=== PATIENT | female | born 1990 | race Caucasian/White ===

== ENCOUNTER 2024-05-20 13:25 | Outpatient (CLI) | payer OTHER | END 2024-05-20 13:26 | disposition home or self-care (01) | LOC: PRENATAL 13:25 | PROVIDERS: ATTEND Obstetrics & Gynecology Maternal & Fetal Medicine | DX: O26.849 Uterine size-date discrepancy, unspecified trimester (principal); O24.419 Gestational diabetes mellitus in pregnancy, unspecified control; O99.210 Obesity complicating pregnancy, unspecified trimester; Z3A.23 23 weeks gestation of pregnancy ==

== ENCOUNTER → 2024-06-21 08:37 | Outpatient (CLI) | payer OTHER | END | disposition home or self-care (01) | LOC: PRENATAL 08:37 | PROVIDERS: ATTEND Obstetrics & Gynecology Maternal & Fetal Medicine | DX: O26.849 Uterine size-date discrepancy, unspecified trimester (principal); O36.8199 Decreased fetal movements, unspecified trimester, other fetus; O24.419 Gestational diabetes mellitus in pregnancy, unspecified control; O99.210 Obesity complicating pregnancy, unspecified trimester; O32.9XX0 Maternal care for malpresentation of fetus, unspecified, not applicable or unspecified; Z3A.28 28 weeks gestation of pregnancy ==

== ENCOUNTER → 2024-08-02 07:23 | Outpatient (CLI) | payer OTHER | END | disposition home or self-care (01) | LOC: PRENATAL 07:23 | PROVIDERS: ATTEND Obstetrics & Gynecology Maternal & Fetal Medicine | DX: O26.849 Uterine size-date discrepancy, unspecified trimester (principal); O36.8199 Decreased fetal movements, unspecified trimester, other fetus; O24.419 Gestational diabetes mellitus in pregnancy, unspecified control; O99.210 Obesity complicating pregnancy, unspecified trimester; O32.9XX0 Maternal care for malpresentation of fetus, unspecified, not applicable or unspecified; Z3A.34 34 weeks gestation of pregnancy ==

== ENCOUNTER 2024-08-16 21:13 | Outpatient (CLI) | payer OTHER ==
[~2024-08-16] VITALS: Ht 167.6 cm; Wt 113.4 kg
[2024-08-16 21:38] VITALS: BP 106/66
[2024-08-16] MEDS ORDERED: BETAMETHASONE ACETATE,SOD PHOS 30 MG/5 ML ML IM STA (21:43)
[2024-08-16] MEDS ORDERED: SODIUM CHLORIDE 0.45 % 1,000 ML IV SCH (21:45)
[2024-08-16] MEDS ORDERED: PRENATAL TABLE1 EAC1 PO (22:09)
[2024-08-16] MEDS ORDERED: ASPIRIN81 MG PO (22:10)
[2024-08-16] MEDS ORDERED: HUMULIN N100 UNIT/2 SUBCUTANEO (22:12)
[2024-08-16 22:19] LABS: BASO % 0.2 % (0.1-1.2); EOS # 0.15 (0.04-0.54); EOS % 1.5 % (0.7-7.0); HEMATOCRIT 38.2 % (34.1-44.9); HEMOGLOBIN 13.3 g/dL (11.2-15.7); LYMPH # 2.12 (1.18-3.74); LYMPH % 20.9 % (19.3-53.1); MEAN CORPUSCULAR HEMOGLOBIN 29.1 pg (25.6-32.2); MONO # 0.55 (0.24-0.82); MONO % 5.4 % (4.7-12.5); NEUT # 7.25 (1.56-6.13); NEUT % 71.6 % (34.0-71.1); PLATELET COUNT 157 K/uL (163-369); RED BLOOD COUNT 4.57 M/uL (3.93-5.22); RED CELL DISTRIBUTION WIDTH 13.2 % (11.6-14.4)
[2024-08-16 22:20] LABS: PH,URINE 7.5 (5.0-8.0); URINE APPEARANCE Cloudy; URINE BILIRRUBIN Negative (NEGATIVE); URINE BLOOD Negative; URINE COLOR Yellow; URINE GLUCOSE Negative (NEGATIVE); URINE KETONE Trace (NEGATIVE); URINE LEUKOCYTE Large; URINE NITRATE Negative; URINE PROTEIN 30 (NEGATIVE)
[2024-08-16 22:24] LABS: URINE EPITHELIAL CELLS 173.5 uL (0.0-38.8); URINE RBC 11.7 uL (0.0-20.8); URINE WBC 615.2 uL (0.0-23.2)
[2024-08-16 22:39] LABS: INR 0.94; PARTIAL THROMBOPLASTIN TIME 23.7 SECONDS (22.0-34.0); PROTHROMBIN TIME 10.3 SECONDS (9.0-11.5)
[2024-08-16 22:42] LABS: ALBUMIN 2.9 gm/dL (3.4-5.0); BILIRUBIN TOTAL 0.24 mg/dL (0.3-1.2); CALCIUM 9.3 mg/dL (8.5-10.1); CREATININE SERUM 0.5 mg/dL (0.55-1.02); GFR 142.09; GLOBULINA 3.3 G/DL (2.4-3.5); POTASSIUM 3.67 mEq/L (3.5-5.1); TOTAL PROTEIN 6.2 gm/dL (6.4-8.2)
[2024-08-16 22:50] LABS: URINE CAST 0.88 uL (0.0-1.40)
[2024-08-16 22:51] LABS: URINE YEAST MODERATE /hpf
[2024-08-16 23:51] VITALS: BP 111/67
[2024-08-17] VITALS (7 sets, daily range): BP systolic 93–113; BP diastolic 60–72; O2SAT 98
[2024-08-17] MEDS ORDERED: CEFAZOLIN SODIUM 1,000 MG VIAL IV SCH ×2 (00:45→02:00)
[2024-08-17] MEDS ORDERED: INSULIN NPH HUM/REG INSULIN HM 1,000 UNIT/10 ML UNITS SUBCUTANEO SCH (21:00)
[2024-08-17] MEDS ORDERED: BETAMETHASONE ACETATE,SOD PHOS 30 MG/5 ML ML IM ONE (21:45)
== END 2024-08-17 23:28 | disposition home or self-care (01) ==
LOC: OBS/DEL 21:13
PROVIDERS: ATTEND Obstetrics & Gynecology
DX: O26.893 Other specified pregnancy related conditions, third trimester (principal); O26.849 Uterine size-date discrepancy, unspecified trimester; O36.8199 Decreased fetal movements, unspecified trimester, other fetus; O24.419 Gestational diabetes mellitus in pregnancy, unspecified control; Z3A.36 36 weeks gestation of pregnancy

== ENCOUNTER 2024-08-19 17:11 | Inpatient (IN) | payer OTHER ==
[~2024-08-19] VITALS: Ht 167.6 cm; Wt 113.4 kg
[~2024-08-19 17:11] MED LIST: ASPIRIN81 MG PO; HUMULIN N100 UNIT/2 SUBCUTANEO; PRENATAL TABLE1 EAC1 PO
[2024-08-19 17:32] VITALS: BP 96/63
[2024-08-19] MEDS ORDERED: CEPHALEXIN750 MG (18:14)
[2024-08-19] MEDS ORDERED: RINGERS SOLUTION,LACTATED 1,000 ML IV SCH (18:30)
[2024-08-19 18:40] LABS: BASO % 0.2 % (0.1-1.2); EOS # 0.06 (0.04-0.54); EOS % 0.5 % (0.7-7.0); HEMATOCRIT 35.8 % (34.1-44.9); HEMOGLOBIN 12.5 g/dL (11.2-15.7); LYMPH # 2.62 (1.18-3.74); LYMPH % 21.2 % (19.3-53.1); MEAN CORPUSCULAR HEMOGLOBIN 29.8 pg (25.6-32.2); MONO # 1.06 (0.24-0.82); MONO % 8.6 % (4.7-12.5); NEUT # 8.41 (1.56-6.13); NEUT % 68.3 % (34.0-71.1); PLATELET COUNT 152 K/uL (163-369); RED CELL DISTRIBUTION WIDTH 13.6 % (11.6-14.4); URINE APPEARANCE Cloudy; URINE BILIRRUBIN Negative (NEGATIVE); URINE BLOOD Negative; URINE COLOR Yellow; URINE GLUCOSE Negative (NEGATIVE); URINE KETONE Trace (NEGATIVE); URINE LEUKOCYTE Large; URINE NITRATE Negative; URINE PROTEIN Trace (NEGATIVE)
[2024-08-19 18:42] LABS: URINE BACTERIA 987.7 uL (0.0-1933); URINE RBC 4.7 uL (0.0-20.8); URINE WBC 635.6 uL (0.0-23.2)
[2024-08-19 19:01] LABS: BILIRUBIN TOTAL 0.26 mg/dL (0.3-1.2); CALCIUM 7.8 mg/dL (8.5-10.1); CREATININE SERUM 0.35 mg/dL (0.55-1.02); GFR 214.45; GLOBULINA 2.3 G/DL (2.4-3.5); INR 0.96; PARTIAL THROMBOPLASTIN TIME 22.2 SECONDS (22.0-34.0); POTASSIUM 3.71 mEq/L (3.5-5.1); PROTHROMBIN TIME 10.5 SECONDS (9.0-11.5); TOTAL PROTEIN 4.3 gm/dL (6.4-8.2)
[2024-08-19 19:34] VITALS: BP 112/69
[2024-08-19 19:38] LABS: URINE CAST 0.29 uL (0.0-1.40)
[2024-08-19 19:39] LABS: URINE YEAST MANY /hpf
[2024-08-19] MEDS ORDERED: INSULIN NPH HUMAN ISOPHANE 1,000 UNITS/10 ML UNITS SUBCUTANEO SCH (21:00)
[2024-08-19 23:29] VITALS: BP 104/64
[2024-08-20 04:00] VITALS: BP 104/62
[2024-08-20 07:37] VITALS: BP 103/67
[2024-08-20 11:22] VITALS: BP 106/66
[2024-08-20 15:18] VITALS: BP 124/77
[2024-08-20 18:23] VITALS: BP 110/70
[2024-08-20 23:36] VITALS: BP 103/65
[2024-08-21 04:00] VITALS: BP 107/67
[2024-08-21 07:39] VITALS: BP 105/69
[2024-08-21 11:08] VITALS: BP 115/75
== END 2024-08-21 14:38 | disposition home or self-care (01) | DRG 833 ==
LOC: LDR 17:11
PROVIDERS: ADMIT Obstetrics & Gynecology; ATTEND Obstetrics & Gynecology
PROC: 4A1HXCZ Monitoring of Products of Conception, Cardiac Rate, External Approach (ICD-10-PCS; principal; 2024-08-19)
PROC: BY4FZZZ Ultrasonography of Third Trimester, Single Fetus (ICD-10-PCS; 2024-08-20)
DX: O24.410 Gestational diabetes mellitus in pregnancy, diet controlled (principal); Z3A.36 36 weeks gestation of pregnancy

== ENCOUNTER 2024-08-31 01:19 | Inpatient (IN) | payer OTHER ==
[~2024-08-31] VITALS: Ht 167.6 cm; Wt 111.6 kg
[2024-08-31] VITALS (7 sets, daily range): BP systolic 107–155; BP diastolic 60–90
[~2024-08-31 01:19] MED LIST changes: +CEPHALEXIN750 MG
[2024-08-31] MEDS ORDERED: RINGERS SOLUTION,LACTATED 1,000 ML IV SCH (01:30)
[2024-08-31] MEDS ORDERED: PRENATA CHEWAB1 EACH PO (02:02)
[2024-08-31 02:53] LABS: BASO % 0.1 % (0.1-1.2); EOS # 0.07 (0.04-0.54); EOS % 0.7 % (0.7-7.0); HEMATOCRIT 37.3 % (34.1-44.9); LYMPH # 2.18 (1.18-3.74); LYMPH % 20.7 % (19.3-53.1); MEAN CORPUSCULAR HEMOGLOBIN 29.2 pg (25.6-32.2); MONO # 0.62 (0.24-0.82); MONO % 5.9 % (4.7-12.5); NEUT # 7.63 (1.56-6.13); NEUT % 72.2 % (34.0-71.1); PLATELET COUNT 158 K/uL (163-369); RED BLOOD COUNT 4.45 M/uL (3.93-5.22)
[2024-08-31 02:59] LABS: PH,URINE 6.5 (5.0-8.0); URINE APPEARANCE Clear; URINE BILIRRUBIN Negative (NEGATIVE); URINE BLOOD Negative; URINE COLOR Dark Yellow; URINE GLUCOSE Negative (NEGATIVE); URINE KETONE Trace (NEGATIVE); URINE LEUKOCYTE Moderate; URINE NITRATE Negative; URINE PROTEIN 30 (NEGATIVE)
[2024-08-31 03:05] LABS: URINE EPITHELIAL CELLS 51.2 uL (0.0-38.8); URINE RBC 15.7 uL (0.0-20.8); URINE WBC 366.8 uL (0.0-23.2)
[2024-08-31 03:12] LABS: INR 0.96; PARTIAL THROMBOPLASTIN TIME 22.4 SECONDS (22.0-34.0); PROTHROMBIN TIME 10.5 SECONDS (9.0-11.5)
[2024-08-31 03:24] LABS: URINE CAST 0.73 uL (0.0-1.40)
[2024-08-31] MEDS ORDERED: OXYTOCIN 20 UNITS/500ML RL PIGGYBAG IV SCH (12:45)
[2024-08-31] MEDS ORDERED: OXYTOCIN 20 UNITS/500ML RL PIGGYBAG IV ONE (13:38)
[2024-08-31] MEDS ORDERED: ERYTHROMYCIN BASE OPHT 1GM EACH TUBE OP ONE ×2 (19:30→23:14)
[2024-08-31] MEDS ORDERED: OXYTOCIN 20 UNITS/1000ML RL PIGGYBAG IV ONE (19:30)
[2024-08-31] MEDS ORDERED: CHLORHEXIDINE GLUCONATE 120 ML BOTTLE TOP ONE (19:31)
[2024-08-31] MEDS ORDERED: LIDOCAINE HCL 1% 10ML VIAL ONE (19:31)
[2024-08-31] MEDS ORDERED: CITRIC ACID/SODIUM CITRATE 30 ML BLIST.PACK PO ONE (23:00)
[2024-08-31] MEDS ORDERED: OXYTOCIN 10 UNITS/ML VIAL ONE (23:14)
[2024-09-01] MEDS ORDERED: CEFAZOLIN SODIUM 1,000 MG VIAL ONE (00:46)
[2024-09-01] MEDS ORDERED: KETOROLAC TROMETHAMINE 60 MG VIAL IM STA (01:31)
[2024-09-01] MEDS ORDERED: OXYTOCIN 1,000 ML IV SCH (01:45)
[2024-09-01] MEDS ORDERED: CHLORHEXIDINE GLUCONATE 120 ML BOTTLE TOP SCH (01:45)
[2024-09-01] MEDS ORDERED: MORPHINE SULFATE 4 MG/ML CARTRIDGE IV PRN (01:45)
[2024-09-01] MEDS ORDERED: RINGERS SOLUTION,LACTATED 1,000 ML IV SCH (01:45)
[2024-09-01] MEDS ORDERED: OXYTOCIN 10 UNITS/ML VIAL ONE (03:58)
[2024-09-01 05:34] VITALS: BP 121/70
[2024-09-01 06:12] LABS: BASO % 0.1 % (0.1-1.2); HEMATOCRIT 33.1 % (34.1-44.9); HEMOGLOBIN 11.6 g/dL (11.2-15.7); LYMPH # 1.04 (1.18-3.74); LYMPH % 6.4 % (19.3-53.1); MEAN CORPUSCULAR HEMOGLOBIN 29.8 pg (25.6-32.2); MONO # 0.98 (0.24-0.82); MONO % 6.1 % (4.7-12.5); NEUT # 14.07 (1.56-6.13); PLATELET COUNT 143 K/uL (163-369); RED BLOOD COUNT 3.89 M/uL (3.93-5.22); RED CELL DISTRIBUTION WIDTH 13.2 % (11.6-14.4)
[2024-09-01 08:39] VITALS: BP 114/72
[2024-09-01] MEDS ORDERED: ACETAMINOPHEN WITH CODEINE 1 UDTAB TABLET PO PRN (09:00)
[2024-09-01 16:00] VITALS: BP 109/75
[2024-09-02 00:55] VITALS: BP 106/71
[2024-09-02 09:05] VITALS: BP 113/74
[2024-09-02 16:30] VITALS: BP 113/71
[2024-09-02] MEDS ORDERED: BISACODYL 10 MG/SUPP.RECT SUPP.RECT RECTAL ONE ×2 (21:15→22:45)
[2024-09-02] MEDS ORDERED: BISACODYL 5 MG TABLET.EC PO ONE ×2 (21:29→21:30)
[2024-09-03 01:32] VITALS: BP 117/66
[2024-09-03 05:47] VITALS: BP 122/83
[2024-09-03 08:00] VITALS: BP 128/83
[2024-09-03] MEDS ORDERED: IBUprofen 600 MG TABLET PO ONE (19:30)
== END 2024-09-03 19:10 | disposition home or self-care (01) | DRG 785 ==
LOC: LDR 01:19 → OB/GYN 09-01 02:31
PROVIDERS: ADMIT Obstetrics & Gynecology; ATTEND Obstetrics & Gynecology
PROC: 4A1HXCZ Monitoring of Products of Conception, Cardiac Rate, External Approach (ICD-10-PCS; 2024-08-31)
PROC: 0UB70ZZ Excision of Bilateral Fallopian Tubes, Open Approach (ICD-10-PCS; 2024-09-01)
PROC: 10D00Z1 Extraction of Products of Conception, Low, Open Approach (ICD-10-PCS; principal; 2024-09-01 07:00)
DX: O24.429 Gestational diabetes mellitus in childbirth, unspecified control (principal); O13.4 Gestational [pregnancy-induced] hypertension without significant proteinuria, complicating childbirth; Z3A.38 38 weeks gestation of pregnancy; Z37.0 Single live birth; Z30.2 Encounter for sterilization